=== PATIENT | male | born 1995 | race Caucasian/White ===

== ENCOUNTER 2017-04-28 13:55 | Emergency (ER) | payer OTHER ==
[2017-04-28 14:44] VITALS: RESP 16
--- NOTE | 2017-04-28 15:10 | EDPHY ---
H & P Time Seen by Provider: 04/28/17 14:58 HPI/ROS: CHIEF COMPLAINT: Right foot injury HISTORY OF PRESENT ILLNESS: Rolled his right foot this morning at 8:00 a.m. And then continued to exercise on it. Presents with pain in the instep and medially on the right foot worse with movement or flexion or extension. REVIEW OF SYSTEMS: No other injury. No ankle or leg or knee symptoms. PAST MEDICAL HISTORY: Ear tubes Social history: From [place], returning tomorrow General Appearance: Alert and conversant, cooperative. Right knee normal range of motion. Right tibia and fibula nontender including both malleoli. Achilles nontender. Skin intact. Has some pain and tenderness over the instep of the foot medially. Normal motor sensory and dorsalis pedis distally. Emergency Department course/MDM: X-ray the right foot shows old bone chip for bone spur in the instep nothing acute, reviewed with Dr. Rosales. Migel wrap, splint, orthopedic follow-up back in [place]. Smoking Status: Never smoked Constitutional: Initial Vital Signs Temperature (C) 37 C 04/28/17 14:42 Heart Rate 101 H 04/28/17 14:42 Respiratory Rate 16 04/28/17 14:42 Blood Pressure 143/78 H 04/28/17 14:42 O2 Sat (%) 97 04/28/17 14:42 O2 Delivery Mode Room Air Allergies/Adverse Reactions: No Known Allergies Allergy (Unverified 04/28/17 14:41) Home Medications: Medication Instructions Recorded NK [No Known Home Meds] 04/28/17 MDM/Departure - MDM Imaging Results: Ft x-ray shows negative for fracture. Does not have tenderness higher up warmer proximally to indicate need for ankle x-ray. Imaging: Discussed imaging studies w/ banquet server on call Radiologist - Depart Disposition: Home, Routine, Self-Care Clinical Impression: Sprain of right foot Qualifiers: Encounter type: initial encounter Qualified Code(s): S93.601A - Unspecified sprain of right foot, initial encounter Condition: Good Instructions: Foot Sprain (ED) Additional Instructions: Activity as tolerated. Please follow-up with orthopedist next week in [place]. Bring the computer disc with your x-rays on it to your appointment. Referrals: Delores Juarez MD [Medical Doctor] - As per Instructions
[2017-04-28 15:36] VITALS: BP 130/74; PULSE 75; TEMP 97.9; O2SAT 96
== END 2017-04-28 15:36 | disposition home or self-care (01) ==
DX: S93.601A Unspecified sprain of right foot, initial encounter (principal); X50.9XXA Other and unspecified overexertion or strenuous movements or postures, initial encounter; Y93.89 Activity, other specified